=== PATIENT | male | born 1980 | race Hispanic/Latino ===

== ENCOUNTER 2018-04-15 00:59 | Emergency (ER) | payer SELFPAY ==
[2018-04-15 02:00] LABS: Absolute Lymphocytes (CBC) 1.3 K/uL (0.7-4.9); Absolute Monocytes 0.7 K/uL (0.1-1.3); Absolute Neutrophil 8.1 K/uL (1.8-8.0); Basophils % 0.3 % (0-1.3); Eosinophils % 0.2 % (0-4.4); Hematocrit 50.8 % (39.6-49.0); Lymphocytes % 12.8 % (15.3-44.8); MPV 9.9 fL (7.6-11.3); Monocytes % 6.5 % (3.3-12.3); RBC Red Blood Cell Count 5.86 M/uL (4.33-5.43)
[2018-04-15 02:04] LABS: Protime INR 1.03
[2018-04-15 02:30] LABS: ALT/SGPT 35 U/L (12-78); AST/SGOT 22 U/L (15-37); Albumin 4.9 g/dL (3.4-5.0); Alkaline Phosphatase 97 U/L (45-117); BUN Blood Urea Nitrogen 8 mg/dL (7-18); Bicarbonate 26 mmol/L (21-32); Bilirubin Direct 0.2 mg/dL (0-0.2); Bilirubin Total 1.1 mg/dL (0.2-1.0); Glucose Level 287 mg/dL (74-106); Potassium 3.5 mmol/L (3.5-5.1); Protein, Total 9.2 g/dL (6.4-8.2); Sodium Level 138 mmol/L (136-145)
[2018-04-15 02:59] LABS: Barbiturates NEGATIVE (NEGATIVE); Cocaine NEGATIVE (NEGATIVE); METHAMPHETAM NEGATIVE (NEGATIVE); Methadone NEGATIVE (NEGATIVE); Opiates NEGATIVE (NEGATIVE); Phencyclidine NEGATIVE (NEGATIVE); THC Cannibis NEGATIVE (NEGATIVE)
[2018-04-15 03:10] LABS: Urine Blood TRACE (NEG); Urine Glucose 2+ (NEG); Urine Protein 1+ (NEG); Urine Specific Gravity 1.015 (1.005-1.030); Urine pH 5.5 (5.0-7.0)
[2018-04-15 03:54] LABS: Benzodiazepines NEGATIVE (NEGATIVE)
[2018-04-15] MEDS ORDERED: METFORMIN HCL 500 MG TAB ONE (06:39)
--- NOTE | 2018-04-15 06:45 | EKG ---
Test Date: 2018-04-15 Test Time: 01:31:21 [employer]: AER MEASUREMENT RESULTS: Intervals: Rate: 109 ND: 132 QRSD: 92 QT: 354 QTc: 476 [place]: P: 48 ND: 132 QRS: -74 T: 32 INTERPRETIVE STATEMENTS: Sinus tachycardia Left axis deviation Pulmonary disease pattern Abnormal ECG No previous ECG available for comparison Electronically Signed On 04-15-18 06:44:48 [employer] by Kwan Lopez
[2018-04-16] MEDS ORDERED: METFORMIN HCL 500 MG TAB ONE ×3 (07:08→18:14)
--- NOTE | 2018-04-17 01:32 | ER ---
Nurse's Notes [facility] Name: Robby Augustin Jr Age: 37 yrs Sex: Male : 1980 Arrival Date: 04/15/2018 Time: 01:02 Bed 14 Private MD: Diagnosis: Suicidal ideations;Major depressive disorder, recurrent Presentation: 04/15 01:00 Presenting complaint: EMS states: that they were called by police who state that pt was fc trying to kill himself by shooting himself in the head. But upon being detained pt started to have abd pain and leg cramps. Transition of care: patient was not received from another setting of care. Onset of symptoms was 2015. Risk Assessment: Do you want to hurt yourself or someone else? Patient reports desire/thoughts of hurting themselves or someone else. Provider notified. Initial Sepsis Screen: Does the patient meet any 2 criteria? HR > 90 bpm. Yes Does the patient have a suspected source of infection? No. Patient's initial sepsis screen is negative. Care prior to arrival: Glucose check: 310. 01:00 Method Of Arrival: EMS: [facility] 01:00 Acuity: ROLY 2 fc Historical: - Allergies: 01:30 No Known Allergies; fc - Home Meds: 01:30 gemfibrozil 600 mg Oral tab 1 tab 2 times per day [Active]; metformin 500 mg Oral tab 1 fc tab 2 times per day [Active]; - PMHx: 01:30 Diabetes - NIDDM; High Cholesterol; Depression; TB; fc - PSHx: 01:30 Appendectomy; fc - Immunization history:: Last tetanus immunization: up to date Flu vaccine status is unknown. - Social history:: Smoking status: Patient/guardian denies using tobacco, Patient/guardian denies using alcohol, street drugs. - Ebola Screening: : Patient negative for fever greater than or equal to 101.5 degrees Fahrenheit, and additional compatible Ebola Virus Disease symptoms Patient denies exposure to infectious person Patient denies travel to an Ebola-affected area in the 21 days before illness onset. Screenin:00 Abuse screen: Denies threats or abuse. Nutritional screening: No deficits noted. fc Tuberculosis screening: prior treatment for TB in 2003. Fall Risk None identified. Assessment: 01:00 General: Appears in no apparent distress. comfortable, Behavior is calm, cooperative, rr5 quiet. Pain: Complains of pain in abdomen, right leg and left leg Pain does not radiate. Pain currently is 7 out of 10 on a pain scale. Quality of pain is described as aching, Pain began gradually, Is intermittent. 01:00 Neuro: Level of Consciousness is awake, alert, obeys commands, Oriented to person, rr5 place, time, situation, Appropriate for age. Cardiovascular: Capillary refill < 3 seconds Patient's skin is warm and dry. Respiratory: Airway is patent Respiratory effort is even, unlabored, Respiratory pattern is regular, symmetrical. GI: Abdomen is flat, Reports lower abdominal pain, upper abdominal pain. : No signs and/or symptoms were reported regarding the genitourinary system. EENT: No signs and/or symptoms were reported regarding the EENT system. Derm: Skin is intact, Skin temperature is warm. Musculoskeletal: Capillary refill < 3 seconds, Range of motion: intact in all extremities, Reports leg cramps. 02:00 Reassessment: Patient appears in no apparent distress at this time. Patient and/or rr5 family updated on plan of care and expected duration. Pain level reassessed. asleep on bed with sitter at bedside. 03:00 Reassessment: Patient appears in no apparent distress at this time. Patient and/or rr5 family updated on plan of care and expected duration. Pain level reassessed. no complaints made. 04:35 Reassessment: Patient appears in no apparent distress at this time. Patient and/or rr5 family updated on plan of care and expected duration. Pain level reassessed. awaiting for the mental deputy officer. cooperative, calm. 06:00 Reassessment: Patient appears in no apparent distress at this time. No changes from rr5 previously documented assessment. asleep comfortably on bed. waiting for mental health officer to come. 06:41 Reassessment: Patient appears in no apparent distress at this time. No changes from rr5 previously documented assessment. no complaints made. update from Charge nurse, coordinating now with other facilities, if they will not take the patient [facility] is on its way. Patient states feeling better. 07:00 General: Appears in no apparent distress. comfortable, Behavior is calm, cooperative, hj appropriate for age. Pain: Complains of pain in left leg and right leg and abdomen. Neuro: Level of Consciousness is awake, alert, obeys commands, Oriented to person, place, time, situation, Appropriate for age. Cardiovascular: Capillary refill < 3 seconds Patient's skin is warm and dry. GI: Abdomen is non-distended, Reports lower abdominal pain, upper abdominal pain. : No signs and/or symptoms were reported regarding the genitourinary system. EENT: No signs and/or symptoms were reported regarding the EENT system. Derm: No signs and/or symptoms reported regarding the dermatologic system. Musculoskeletal: No signs and/or symptoms reported regarding the musculoskeletal system. 07:45 Reassessment: Patient and/or family updated on plan of care and expected duration. Pain hj level reassessed. Patient is alert, oriented x 3, equal unlabored respirations, skin warm/dry/pink. [facility] in room;. 08:45 Reassessment: Patient and/or family updated on plan of care and expected duration. Pain hj level reassessed. Patient is alert, oriented x 3, equal unlabored respirations, skin warm/dry/pink. resting comfortably;. 09:45 Reassessment: Patient and/or family updated on plan of care and expected duration. Pain hj level reassessed. Patient is alert, oriented x 3, equal unlabored respirations, skin warm/dry/pink. resting comfotably;. 10:00 Reassessment: [facility] called to report they will be looking through pt chart. iw 12:00 Reassessment: Patient and/or family updated on plan of care and expected duration. Pain hj level reassessed. Patient is alert, oriented x 3, equal unlabored respirations, skin warm/dry/pink. 13:00 Reassessment: Patient and/or family updated on plan of care and expected duration. Pain hj level reassessed. Patient is alert, oriented x 3, equal unlabored respirations, skin warm/dry/pink. resting comfortably;. 14:00 Reassessment: Patient and/or family updated on plan of care and expected duration. Pain hj level reassessed. Patient is alert, oriented x 3, equal unlabored respirations, skin warm/dry/pink. 15:00 Reassessment: Patient and/or family updated on plan of care and expected duration. Pain hj level reassessed. Patient is alert, oriented x 3, equal unlabored respirations, skin warm/dry/pink. 16:00 Reassessment: Patient and/or family updated on plan of care and expected duration. Pain hj level reassessed. Patient is alert, oriented x 3, equal unlabored respirations, skin warm/dry/pink. 17:00 Reassessment: pt requested to update, told him we are waiting for a call from [facility], he stated, he wanted to go home and proceed with [place] scheduled around 10- 11 am; provider informed; pt is an in patient psych, only psych doc can D/C pt;. 17:38 Reassessment: Jenni called asking if family could visit; pt was asked and he skye gave permission to id to have visitors guido family members. 18:00 Reassessment: Patient and/or family updated on plan of care and expected duration. Pain hj level reassessed. Patient is alert, oriented x 3, equal unlabored respirations, skin warm/dry/pink. awaiting family member for a visit;. 19:05 General: Appears in no apparent distress. comfortable, Behavior is calm, cooperative, rr5 appropriate for age. Pain: Denies pain. Neuro: Level of Consciousness is awake, alert, obeys commands, Oriented to person, place, time, situation, Appropriate for age. Cardiovascular: Capillary refill < 3 seconds Patient's skin is warm and dry. Respiratory: Airway is patent Respiratory effort is even, unlabored, Respiratory pattern is regular, symmetrical. GI: Abdomen is flat, non-distended. : No signs and/or symptoms were reported regarding the genitourinary system. EENT: No signs and/or symptoms were reported regarding the EENT system. Derm: No signs and/or symptoms reported regarding the dermatologic system. Skin is intact, Skin temperature is warm. Musculoskeletal: Capillary refill < 3 seconds, Range of motion: intact in all extremities. 19:05 Reassessment: Patient appears in no apparent distress at this time. Patient and/or rr5 family updated on plan of care and expected duration. Pain level reassessed. awaiting for staff. 20:30 Reassessment: Patient appears in no apparent distress at this time. Patient is alert, rr5 oriented x 3, equal unlabored respirations, skin warm/dry/pink. chatting with his family member, eating dinner. no complaints made. 21:30 Reassessment: Patient appears in no apparent distress at this time. No changes from rr5 previously documented assessment. Patient is alert, oriented x 3, equal unlabored respirations, skin warm/dry/pink. 22:30 Reassessment: Patient appears in no apparent distress at this time. Patient is alert, rr5 oriented x 3, equal unlabored respirations, skin warm/dry/pink. watching TV comfortably. 23:30 Reassessment: Patient appears in no apparent distress at this time. No changes from rr5 previously documented assessment. 04/16 00:30 Reassessment: Patient appears in no apparent distress at this time. Patient is alert, rr5 oriented x 3, equal unlabored respirations, skin warm/dry/pink. no complaints made. 01:00 Reassessment: Patient appears in no apparent distress at this time. chatting with his rr5 visitors no complaints noted. 02:00 Reassessment: Patient appears in no apparent distress at this time. Patient is alert, rr5 oriented x 3, equal unlabored respirations, skin warm/dry/pink. 03:00 Reassessment: Patient appears in no apparent distress at this time. Patient and/or rr5 family updated on plan of care and expected duration. Pain level reassessed. awake watching TV on semi quintero's position Patient states feeling better. 04:00 Reassessment: Patient appears in no apparent distress at this time. Patient is alert, rr5 oriented x 3, equal unlabored respirations, skin warm/dry/pink. spoke to [facility] staff adrian informed for the information of the patient. to be send [facility] and [facility] assessment. fax number [phone]. 05:30 Reassessment: Patient appears in no apparent distress at this time. asleep on bed. rr5 06:30 Reassessment: ED provider informed patient has a due of metformin for his diabetes. rr5 with order to continue the medication. 06:52 Reassessment: Patient appears in no apparent distress at this time. Patient is alert, rr5 oriented x 3, equal unlabored respirations, skin warm/dry/pink. on side lying position asleep comfortably on bed. 07:25 Reassessment: Patient appears in no apparent distress at this time. Patient and/or ph family updated on plan of care and expected duration. Pain level reassessed. Pt awake, lying in bed quietly, awaiting breakfast, VSS, no complaints at this time. 08:30 Reassessment: Patient appears in no apparent distress at this time. Patient and/or ph family updated on plan of care and expected duration. Pain level reassessed. Patient is alert, oriented x 3, equal unlabored respirations, skin warm/dry/pink. Awaiting transfer to psychiatric facility. 09:15 Reassessment: Patient appears in no apparent distress at this time. Patient and/or ph family updated on plan of care and expected duration. Pain level reassessed. Patient is alert, oriented x 3, equal unlabored respirations, skin warm/dry/pink. Pt eating breakfast, tolerating well. 10:30 Reassessment: Patient appears in no apparent distress at this time. No changes from ph previously documented assessment. Patient and/or family updated on plan of care and expected duration. Pain level reassessed. Patient is alert, oriented x 3, equal unlabored respirations, skin warm/dry/pink. 11:27 Reassessment: called [facility] who reports they are waiting for beds to become ss available after their physicians round, and [facility] report that patient is 3rd on waiting list. Transfer pending bed availability. 11:30 Reassessment: [facility] intake nurse reports that she is not available at this time for ss update, but asks to call back within one hour. 11:30 Reassessment: Patient appears in no apparent distress at this time. Patient and/or ph family updated on plan of care and expected duration. Pain level reassessed. Patient is alert, oriented x 3, equal unlabored respirations, skin warm/dry/pink. 12:37 Reassessment: Patient appears in no apparent distress at this time. Patient and/or ph family updated on plan of care and expected duration. Pain level reassessed. Patient is alert, oriented x 3, equal unlabored respirations, skin warm/dry/pink. Pt sitting in bed talking w/ family member at bedside, awaiting acceptance at psych facility. 13:30 Reassessment: Patient appears in no apparent distress at this time. No changes from ph previously documented assessment. Patient and/or family updated on plan of care and expected duration. Pain level reassessed. Patient is alert, oriented x 3, equal unlabored respirations, skin warm/dry/pink. 14:30 Reassessment: Patient appears in no apparent distress at this time. No changes from ph previously documented assessment. Patient and/or family updated on plan of care and expected duration. Pain level reassessed. Patient is alert, oriented x 3, equal unlabored respirations, skin warm/dry/pink. 15:45 Reassessment: Patient appears in no apparent distress at this time. No changes from ph previously documented assessment. Patient and/or family updated on plan of care and expected duration. Pain level reassessed. Patient is alert, oriented x 3, equal unlabored respirations, skin warm/dry/pink. 17:00 Reassessment: Patient appears in no apparent distress at this time. No changes from ph previously documented assessment. Patient and/or family updated on plan of care and expected duration. Pain level reassessed. 18:07 Reassessment: Patient appears in no apparent distress at this time. Patient and/or ph family updated on plan of care and expected duration. Pain level reassessed. Pt appears to be sleeping, respirations even and unlabored, awaiting acceptance at psych facility. 19:00 Reassessment: Patient appears in no apparent distress at this time. Patient and/or jb4 family updated on plan of care and expected duration. Pain level reassessed. Patient is alert, oriented x 3, equal unlabored respirations, skin warm/dry/pink. 20:00 Reassessment: Patient appears in no apparent distress at this time. Patient and/or jb4 family updated on plan of care and expected duration. Pain level reassessed. Patient is alert, oriented x 3, equal unlabored respirations, skin warm/dry/pink. 20:50 Reassessment: Patient appears in no apparent distress at this time. Patient and/or jb4 family updated on plan of care and expected duration. Pain level reassessed. Patient is alert, oriented x 3, equal unlabored respirations, skin warm/dry/pink. Pt was talking with his significant other. general surgery physician assistant reports that pt began to hit himself in the face multiple times after she had left the room. PT is in the room sitting in bed. States " I did not sign up for any of this I just want to go home. I feel like I am locked up, and I just want to go home." Provider notified, no new orders at this time. 21:13 Reassessment: Deputy Best who states that pt need re-eval by [facility] due to fc warrant being close to expiration. 21:17 Reassessment: Deputy Mcmullen called to state that pt must have re-eval by [facility] but that in the mean time he will send Deputy Best to ER to speak with pt and Dr about transfer and senior product engineer signed warrant. 21:30 Reassessment: Deputy Best dropped off mental health commitment handbook and stated fc that he will be back in 2 or so hours to transfer pt to psych facility. Explained that no bed had been secured for him and he stated that he was going to take pt to [facility] ER. 22:00 Reassessment: Patient appears in no apparent distress at this time. Patient and/or jb4 family updated on plan of care and expected duration. Pain level reassessed. Patient is alert, oriented x 3, equal unlabored respirations, skin warm/dry/pink. Pt has guest at the bedside and is eating dinner with them. Appears to be much more calm. Denies needing wanting anything from hospital staff at this time. Patient states feeling better. Patient states symptoms have improved. 23:49 Reassessment: Patient appears in no apparent distress at this time. Patient and/or jb4 family updated on plan of care and expected duration. Pain level reassessed. Patient is alert, oriented x 3, equal unlabored respirations, skin warm/dry/pink. Guest are at the bedside. 04/17 01:00 Reassessment: Patient appears in no apparent distress at this time. No changes from jb4 previously documented assessment. Patient and/or family updated on plan of care and expected duration. Pain level reassessed. Patient is alert, oriented x 3, equal unlabored respirations, skin warm/dry/pink. 01:15 Reassessment: [place] Estephania here with Judge Carranza to fill out paper work for Mental Health Commitment Handbook. Pt will be taken to psych facility by . 01:32 Reassessment: Patient appears in no apparent distress at this time. Patient and/or jb4 family updated on plan of care and expected duration. Pain level reassessed. Patient is alert, oriented x 3, equal unlabored respirations, skin warm/dry/pink. Belongings returned to the pt. Pt gave his his 2 gold colored rings, gold necklace with a charm, and plain gold necklace along with his house keys and pocket knife and belt. Pt also gave his $400. When money was returned to pt all $700 was accounted for. was also given the pt's belt. Psych: 04/15 01:00 Subjective: Patient's mood is sad, hopeless, Delusions are denied, Hallucinations are fc denied Having thoughts of suicide. Plan for suicide is shoot himself in the head. Objective: Patient is cooperative, Speech is normal, Affect is appropriate. Interventions: Removed personal items and placed in bag. Patient placed in hospital gown. Searched person for dangerous items. Belonging list filled out. Suicide Risk Assessment: Sad Person Scale: Sex of patient: Male: Score 1 point. Age of patient: Score 0 point if patient falls outside of specified age parameters. Depression: Score 1 point if signs of depression are present. Previous Attempt: Score 1 point if patient has previously attempted suicide. Substance Abuse: Score 0 point if patient does not abuse alcohol or drugs. Rational Thinking: Score 1 point if patient is lacking rational thinking. Social Support: Score 1 point if social support is lacking and/or unavailable. Organized Plan: Score 1 point if patient had a plan in place. Relationship: Score 0 point if patient has a spouse or domestic partner. Chronic Sickness: Score 1 point if patient has illness, chronic, debilitating, or severe. TOTAL POINTS: If total points are 7-10, the proposed clinical action is to hospitalize or commit. Implement suicide precautions. Safety Checks: Personal items have been removed. Door is open. No visitors are present at this time. Pt denies substance abuse. 04/17 01:30 Commitment: Patient will be an involuntary commitment. Commitment papers completed. jb4 Vital Signs: 04/15 01:00 BP 149 / 106; Pulse 121; Resp 18; Temp 98.1(O); Pulse Ox 98% on R/A; Weight 83.91 kg fc (R); Height 5 ft. 11 in. (180.34 cm) (R); Pain 7/10; 05:02 BP 149 / 98; Pulse 99; Resp 16; Pulse Ox 98% on R/A; mt 09:00 BP 127 / 89; Pulse 97; Resp 18; Temp 97.6(O); Pulse Ox 97% on R/A; mh5 13:00 BP 126 / 86; Pulse 88; Resp 17; Temp 97.6(O); Pulse Ox 97% on R/A; mh5 17:06 BP 123 / 87; Pulse 84; Resp 18; Temp 97.8(O); Pulse Ox 97% on R/A; mh5 21:02 BP 126 / 81; Pulse 75; Resp 17; Temp 99.2; Pulse Ox 95% on R/A; ar5 04/16 00:58 BP 131 / 82; Pulse 79; Resp 18; Temp 97.9; Pulse Ox 97% on R/A; ar5 04:02 BP 128 / 61; Pulse 79; Resp 17; Temp 99.4; Pulse Ox 97% ; rr5 07:22 BP 119 / 80; Pulse 86; Resp 16; Temp 96.2(O); Pulse Ox 100% on R/A; dh3 12:18 BP 125 / 79; Pulse 85; Resp 18; Temp 97.4; Pulse Ox 97% ; je1 15:53 BP 120 / 79; Pulse 86; Resp 18; Temp 99.1; Pulse Ox 98% ; je1 20:57 BP 119 / 78; Pulse 100; Resp 16; Temp 96.8; Pulse Ox 96% ; bc4 04/17 01:05 BP 137 / 81; Pulse 89; Resp 17; Temp 98; Pulse Ox 98% ; [facility] 04/15 01:00 Body Mass Index 25.80 (83.91 kg, 180.34 cm) ED Course: 04/15 01:00 Safety Checks: Personal items have been removed. The door is open or patient has been rr5 placed in a hallway bed/chair. Sitter present at this time. 01:00 No apparent distress. rr5 01:00 No apparent distress. Appears to be sleeping. rr5 01:00 Arm band placed on Patient placed in an exam room, on a stretcher. fc 01:00 Patient has correct armband on for positive identification. Placed in gown. Bed in low fc position. Call light in reach. 01:02 Patient arrived in ED. al2 01:25 Triage completed. 01:45 Inserted saline lock: 20 gauge in right antecubital area, using aseptic technique. ar5 01:51 Yannick Cortes RN is Primary Nurse. rr5 02:00 No apparent distress. Resting quietly. rr5 02:00 Safety checks: Items removed: yes. Door open/sign placed on door: yes. Family/friend ar5 present: no. Sitter present: Yes. 02:02 Shawn Aldrich MD is Attending Physician. tw4 02:15 Safety checks: Items removed: yes. Door open/sign placed on door: yes. Family/friend ar5 present: no. Sitter present: Yes. 02:30 Safety checks: Items removed: yes. Door open/sign placed on door: yes. Family/friend ar5 present: no. Sitter present: Yes. 02:36 Urine Dipstick--Ancillary (enter results) Sent. rr5 02:45 Safety checks: Items removed: yes. Door open/sign placed on door: yes. Family/friend ar5 present: no. Sitter present: Yes. 03:00 No apparent distress. Resting quietly. rr5 03:00 Safety checks: Items removed: yes. Door open/sign placed on door: yes. Family/friend ar5 present: no. Sitter present: Yes. 03:15 Safety checks: Items removed: yes. Door open/sign placed on door: yes. Family/friend ar5 present: no. Sitter present: Yes. 03:30 Safety checks: Items removed: yes. Door open/sign placed on door: yes. Family/friend ar5 present: no. Sitter present: Yes. 03:45 Safety checks: Items removed: yes. Door open/sign placed on door: yes. Family/friend ar5 present: no. Sitter present: Yes. 04:00 Safety checks: Items removed: yes. Door open/sign placed on door: yes. Family/friend ar5 present: no. Sitter present: Yes. 04:15 Safety checks: Items removed: yes. Door open/sign placed on door: yes. Family/friend ar5 present: no. Sitter present: Yes. 04:30 Safety checks: Items removed: yes. Door open/sign placed on door: yes. Family/friend ar5 present: no. Sitter present: Yes. 04:45 Safety checks: Items removed: yes. Door open/sign placed on door: yes. Family/friend mt present: no. Sitter present: Yes. 05:00 Safety checks: Items removed: yes. Door open/sign placed on door: yes. Family/friend mt present: no. Sitter present: Yes. 05:15 Safety checks: Items removed: yes. Door open/sign placed on door: yes. Family/friend mt present: no. Sitter present: Yes. 05:30 Safety checks: Items removed: yes. Door open/sign placed on door: yes. Family/friend mt present: no. Sitter present: Yes. 05:45 Safety checks: Items removed: yes. Door open/sign placed on door: yes. Family/friend mt present: no. Sitter present: Yes. 06:00 Safety checks: Items removed: yes. Door open/sign placed on door: yes. Family/friend mt present: no. Sitter present: Yes. 06:15 Safety checks: Items removed: yes. Door open/sign placed on door: yes. Family/friend mt present: no. Sitter present: Yes. 06:30 Safety checks: Items removed: yes. Door open/sign placed on door: yes. Family/friend mt present: no. Sitter present: Yes. 06:45 Safety checks: Items removed: yes. Door open/sign placed on door: yes. Family/friend mh5 present: no. Sitter present: Yes. 07:00 Safety checks: Items removed: yes. Door open/sign placed on door: yes. Family/friend mh5 present: no. Sitter present: Yes. 07:15 Safety checks: Items removed: yes. Door open/sign placed on door: yes. Family/friend mh5 present: no. Sitter present: Yes. 07:30 Safety checks: Items removed: yes. Door open/sign placed on door: yes. Family/friend mh5 present: no. Sitter present: Yes. 07:45 Safety checks: Items removed: yes. Door open/sign placed on door: yes. Family/friend mh5 present: no. Other: GULF COAST IN WITH PATIENT Sitter present: Yes. 08:00 Safety checks: Items removed: yes. Door open/sign placed on door: yes. Family/friend mh5 present: no. Other: GULF COAST IN WITH PATIENT Sitter present: Yes. 08:15 Safety checks: Items removed: yes. Door open/sign placed on door: yes. Family/friend mh5 present: no. Sitter present: Yes. 08:30 Safety checks: Items removed: yes. Door open/sign placed on door: yes. Family/friend mh5 present: no. Sitter present: Yes. 08:45 Safety checks: Items removed: yes. Door open/sign placed on door: yes. Family/friend mh5 present: no. Sitter present: Yes. 08:59 Diet: Patient given a diabetic meal tray. mh5 09:00 Safety checks: Items removed: yes. Door open/sign placed on door: yes. Family/friend mh5 present: no. Sitter present: Yes. 09:15 Safety checks: Items removed: yes. Door open/sign placed on door: yes. Family/friend mh5 present: no. Sitter present: Yes. 09:30 Safety checks: Items removed: yes. Door open/sign placed on door: yes. Family/friend mh5 present: no. Sitter present: Yes. 09:45 Safety checks: Items removed: yes. Door open/sign placed on door: yes. Family/friend mh5 present: no. Sitter present: Yes. 10:00 Safety checks: Items removed: yes. Door open/sign placed on door: yes. Family/friend mh5 present: no. Sitter present: Yes. 10:15 Safety checks: Items removed: yes. Door open/sign placed on door: yes. Family/friend mh5 present: no. Sitter present: Yes. 10:30 Safety checks: Items removed: yes. Door open/sign placed on door: yes. Family/friend mh5 present: no. Sitter present: Yes. 10:45 Safety checks: Items removed: yes. Door open/sign placed on door: yes. Family/friend mh5 present: no. Sitter present: Yes. 11:00 Safety checks: Items removed: yes. Door open/sign placed on door: yes. Family/friend mh5 present: no. Sitter present: Yes. 11:15 Safety checks: Items removed: yes. Door open/sign placed on door: yes. Family/friend mh5 present: no. Sitter present: Yes. 11:30 Safety checks: Items removed: yes. Door open/sign placed on door: yes. Family/friend mh5 present: no. Sitter present: Yes. 11:45 Safety checks: Items removed: yes. Door open/sign placed on door: yes. Family/friend mh5 present: no. Sitter present: Yes. 12:00 Safety checks: Items removed: yes. Door open/sign placed on door: yes. Family/friend mh5 present: no. Sitter present: Yes. 12:15 Safety checks: Items removed: yes. Door open/sign placed on door: yes. Family/friend mh5 present: no. Sitter present: Yes. 12:30 Safety checks: Items removed: yes. Door open/sign placed on door: yes. Family/friend mh5 present: no. Sitter present: Yes. 12:45 Safety checks: Items removed: yes. Door open/sign placed on door: yes. Family/friend mh5 present: no. Sitter present: Yes. 13:00 Safety checks: Items removed: yes. Door open/sign placed on door: yes. Family/friend mh5 present: no. Sitter present: Yes. 13:15 Safety checks: Items removed: yes. Door open/sign placed on door: yes. Family/friend mh5 present: no. Sitter present: Yes. 13:26 Diet: Patient given a diabetic meal tray. mh5 13:30 Safety checks: Items removed: yes. Door open/sign placed on door: yes. Family/friend mh5 present: no. Sitter present: Yes. 13:45 Safety checks: Items removed: yes. Door open/sign placed on door: yes. Family/friend mh5 present: no. Sitter present: Yes. 14:00 Safety checks: Items removed: yes. Door open/sign placed on door: yes. Family/friend mh5 present: no. Sitter present: Yes. 14:29 Safety checks: Items removed: yes. Door open/sign placed on door: yes. Family/friend tm3 present: no. Sitter present: Yes. 15:00 Safety checks: Items removed: yes. Door open/sign placed on door: yes. Family/friend mh5 present: no. Sitter present: Yes. 15:15 Safety checks: Items removed: yes. Door open/sign placed on door: yes. Family/friend mh5 present: no. Sitter present: Yes. 15:30 Safety checks: Items removed: yes. Door open/sign placed on door: yes. Family/friend mh5 present: no. Sitter present: Yes. 15:45 Safety checks: Items removed: yes. Door open/sign placed on door: yes. Family/friend mh5 present: no. Sitter present: Yes. 16:00 Safety checks: Items removed: yes. Door open/sign placed on door: yes. Family/friend mh5 present: no. Sitter present: Yes. 16:14 Safety checks: Items removed: yes. Door open/sign placed on door: yes. Family/friend tm3 present: no. Sitter present: Yes. 16:28 Safety checks: Items removed: yes. Door open/sign placed on door: yes. Family/friend tm3 present: no. Sitter present: Yes. 16:45 Safety checks: Items removed: yes. Door open/sign placed on door: yes. Family/friend mh5 present: no. Sitter present: Yes. 16:50 Faxed clinical's to [facility], [facility], [facility], [facility], [facility], [facility], [facility], [facility], [facility], [facility]. 17:00 Safety checks: Items removed: yes. Door open/sign placed on door: yes. Family/friend mh5 present: no. Sitter present: Yes. 17:15 Safety checks: Items removed: yes. Door open/sign placed on door: yes. Family/friend mh5 present: no. Sitter present: Yes. 17:16 Diet: Patient given a diabetic meal tray. mh5 17:30 Safety checks: Items removed: yes. Door open/sign placed on door: yes. Family/friend mh5 present: no. Sitter present: Yes. 17:45 Safety checks: Items removed: yes. Door open/sign placed on door: yes. Family/friend mh5 present: no. Sitter present: Yes. 18:00 Safety checks: Items removed: yes. Door open/sign placed on door: yes. Family/friend mh5 present: no. Sitter present: Yes. 18:15 Safety checks: Items removed: yes. Door open/sign placed on door: yes. Family/friend mh5 present: no. Sitter present: Yes. 18:30 Safety checks: Items removed: yes. Door open/sign placed on door: yes. Family/friend mh5 present: no. Sitter present: Yes. 18:45 Safety checks: Items removed: yes. Door open/sign placed on door: yes. Family/friend mh5 present: no. Sitter present: Yes. 19:00 No apparent distress. Resting quietly. Safety Checks: Personal items have been removed. rr5 The door is open or patient has been placed in a hallway bed/chair. Sitter present at this time. 19:00 Safety checks: Items removed: yes. Door open/sign placed on door: yes. Family/friend mh5 present: no. Sitter present: Yes. 19:07 Safety checks: Family/friend present: yes. Family/friends encouraged to stay with ar5 patient. 19:15 Safety checks: Items removed: yes. Door open/sign placed on door: yes. Family/friend ar5 present: yes. Sitter present: Yes. 19:30 Safety checks: Items removed: yes. Door open/sign placed on door: yes. Family/friend ar5 present: yes. Sitter present: Yes. 19:45 Safety checks: Items removed: yes. Door open/sign placed on door: yes. Family/friend ar5 present: yes. Sitter present: Yes. 20:00 Safety checks: Items removed: yes. Door open/sign placed on door: yes. Family/friend ar5 present: yes. Sitter present: Yes. 20:15 Safety checks: Items removed: yes. Door open/sign placed on door: yes. Family/friend ar5 present: yes. Sitter present: Yes. 20:30 Safety checks: Items removed: yes. Door open/sign placed on door: yes. Family/friend ar5 present: yes. Sitter present: Yes. 20:45 Safety checks: Items removed: yes. Door open/sign placed on door: yes. Family/friend ar5 present: yes. Sitter present: Yes. 21:00 Safety checks: Items removed: yes. Door open/sign placed on door: yes. Family/friend ar5 present: yes. Sitter present: Yes. 21:07 Family has left. ar5 21:15 Safety checks: Items removed: yes. Door open/sign placed on door: yes. Family/friend ar5 present: no. Sitter present: Yes. 21:20 Oral care given. Given toothbrush and toothpaste. Took it back after use. ar5 21:30 Safety checks: Items removed: yes. Door open/sign placed on door: yes. Family/friend ar5 present: yes. Sitter present: Yes. 21:45 Safety checks: Items removed: yes. Door open/sign placed on door: yes. Family/friend ar5 present: no. Sitter present: Yes. 22:00 Safety checks: Items removed: yes. Door open/sign placed on door: yes. Family/friend ar5 present: no. Sitter present: Yes. 22:15 Safety checks: Items removed: yes. Door open/sign placed on door: yes. Family/friend ar5 present: no. Sitter present: Yes. 22:30 Safety checks: Items removed: yes. Door open/sign placed on door: yes. Family/friend ar5 present: no. Sitter present: Yes. 22:45 Safety checks: Items removed: yes. Door open/sign placed on door: yes. Family/friend ar5 present: no. Sitter present: Yes. 23:00 Safety checks: Items removed: yes. Door open/sign placed on door: yes. Family/friend ar5 present: no. Sitter present: Yes. 23:15 Safety checks: Items removed: yes. Door open/sign placed on door: yes. Family/friend ar5 present: no. Sitter present: Yes. 23:30 Safety checks: Items removed: yes. Door open/sign placed on door: yes. Family/friend ar5 present: no. Sitter present: Yes. 23:45 Safety checks: Items removed: yes. Door open/sign placed on door: yes. Family/friend ar5 present: no. Sitter present: Yes. 04/16 00:00 Safety checks: Items removed: yes. Door open/sign placed on door: yes. Family/friend ar5 present: no. Sitter present: Yes. 00:15 Safety checks: Items removed: yes. Door open/sign placed on door: yes. Family/friend ar5 present: yes. Sitter present: Yes. 00:30 Safety checks: Items removed: yes. Door open/sign placed on door: yes. Family/friend ar5 present: yes. Sitter present: Yes. 00:45 Safety checks: Items removed: yes. Door open/sign placed on door: yes. Family/friend ar5 present: yes. Sitter present: Yes. 01:00 Safety checks: Items removed: yes. Door open/sign placed on door: yes. Family/friend ar5 present: yes. Sitter present: Yes. 01:15 Safety checks: Items removed: yes. Door open/sign placed on door: yes. Family/friend ar5 present: yes. Sitter present: Yes. 01:30 Safety checks: Items removed: yes. Door open/sign placed on door: yes. Family/friend ar5 present: no. Sitter present: Yes. 01:45 Safety checks: Items removed: yes. Door open/sign placed on door: yes. Family/friend ar5 present: no. Sitter present: Yes. 02:00 Safety checks: Items removed: yes. Door open/sign placed on door: yes. Family/friend ar5 present: no. Sitter present: Yes. 02:15 Safety checks: Items removed: yes. Door open/sign placed on door: yes. Family/friend ar5 present: no. Sitter present: Yes. 02:30 Safety checks: Items removed: yes. Door open/sign placed on door: yes. Family/friend ar5 present: no. Sitter present: Yes. 02:45 Safety checks: Items removed: yes. Door open/sign placed on door: yes. Family/friend ar5 present: no. Sitter present: Yes. 02:57 FAXED TO [facility], [facility], [facility] ON 04/16/18 . 03:00 Safety checks: Items removed: yes. Door open/sign placed on door: yes. Family/friend ar5 present: no. Sitter present: Yes. 03:15 Safety checks: Items removed: yes. Door open/sign placed on door: yes. Family/friend ar5 present: no. Sitter present: Yes. 03:30 Safety checks: Items removed: yes. Door open/sign placed on door: yes. Family/friend ar5 present: no. Sitter present: Yes. 03:45 Safety checks: Items removed: yes. Door open/sign placed on door: yes. Family/friend ar5 present: no. Sitter present: Yes. 04:00 Safety checks: Items removed: yes. Door open/sign placed on door: yes. Family/friend ar5 present: no. Sitter present: Yes. 04:15 Safety checks: Items removed: yes. Door open/sign placed on door: yes. Family/friend ar5 present: no. Sitter present: Yes. 04:30 Safety checks: Items removed: yes. Door open/sign placed on door: yes. Family/friend ar5 present: no. Sitter present: Yes. 04:31 No provider procedures requiring assistance completed. IV discontinued, intact, rr5 bleeding controlled, No redness/swelling at site. Pressure dressing applied. 04:45 Safety checks: Items removed: yes. Door open/sign placed on door: yes. Family/friend ar5 present: no. Sitter present: Yes. 05:00 Safety checks: Items removed: yes. Door open/sign placed on door: yes. Family/friend ar5 present: no. Sitter present: Yes. 05:15 Safety checks: Items removed: yes. Door open/sign placed on door: yes. Family/friend ar5 present: no. Sitter present: Yes. 05:30 Safety checks: Items removed: yes. Door open/sign placed on door: yes. Family/friend ar5 present: no. Sitter present: Yes. 05:45 Safety checks: Items removed: yes. Door open/sign placed on door: yes. Family/friend ar5 present: no. Sitter present: Yes. 06:00 Safety checks: Items removed: yes. Door open/sign placed on door: yes. Family/friend ar5 present: no. Sitter present: Yes. 06:15 Safety checks: Items removed: yes. Door open/sign placed on door: yes. Family/friend ar5 present: no. Sitter present: Yes. 06:30 Safety checks: Items removed: yes. Door open/sign placed on door: yes. Family/friend ar5 present: no. Sitter present: Yes. 07:00 Safety checks: Items removed: yes. Door open/sign placed on door: yes. Family/friend dh3 present: no. Sitter present: Yes. 07:15 Safety checks: Items removed: yes. Door open/sign placed on door: yes. Family/friend dh3 present: no. Sitter present: Yes. 07:30 Safety checks: Items removed: yes. Door open/sign placed on door: yes. Family/friend dh3 present: no. Sitter present: Yes. 07:45 Safety checks: Items removed: yes. Door open/sign placed on door: yes. Family/friend dh3 present: no. Sitter present: Yes. 08:00 Safety checks: Items removed: yes. Door open/sign placed on door: yes. Family/friend dh3 present: no. Sitter present: Yes. 08:15 Safety checks: Items removed: yes. Door open/sign placed on door: yes. Family/friend dh3 present: no. Sitter present: Yes. 08:30 Safety checks: Items removed: yes. Door open/sign placed on door: yes. Family/friend dh3 present: no. Sitter present: Yes. 08:45 Safety checks: Items removed: yes. Door open/sign placed on door: yes. Family/friend dh3 present: no. Sitter present: Yes. 09:00 Safety checks: Items removed: yes. Door open/sign placed on door: yes. Family/friend dh3 present: no. Sitter present: Yes. 09:15 Safety checks: Items removed: yes. Door open/sign placed on door: yes. Family/friend dh3 present: no. Sitter present: Yes. 09:30 Safety checks: Items removed: yes. Door open/sign placed on door: yes. Family/friend dh3 present: no. Sitter present: Yes. 09:45 Safety checks: Items removed: yes. Door open/sign placed on door: yes. Family/friend dh3 present: no. Sitter present: Yes. 10:00 Safety checks: Items removed: yes. Door open/sign placed on door: yes. Family/friend dh3 present: no. Sitter present: Yes. 10:15 Safety checks: Items removed: yes. Door open/sign placed on door: yes. Family/friend je1 present: no. Sitter present: Yes. 10:30 Safety checks: Items removed: yes. Door open/sign placed on door: yes. Family/friend je1 present: no. Sitter present: Yes. 10:45 Safety checks: Items removed: yes. Door open/sign placed on door: yes. Family/friend je1 present: no. Sitter present: Yes. 11:00 Safety checks: Items removed: yes. Door open/sign placed on door: yes. Family/friend je1 present: no. Sitter present: Yes. 11:15 Safety checks: Items removed: yes. Door open/sign placed on door: yes. Family/friend je1 present: no. Sitter present: Yes. 11:30 Safety checks: Items removed: yes. Door open/sign placed on door: yes. Family/friend je1 present: no. Sitter present: Yes. 11:45 Safety checks: Items removed: yes. Door open/sign placed on door: yes. Family/friend je1 present: no. Sitter present: Yes. 12:00 Safety checks: Items removed: yes. Door open/sign placed on door: yes. Family/friend je1 present: yes. Sitter present: Yes. 12:15 Safety checks: Items removed: yes. Door open/sign placed on door: yes. Family/friend je1 present: yes. Sitter present: Yes. 12:30 Safety checks: Items removed: yes. Door open/sign placed on door: yes. Family/friend je1 present: yes. Family/friends encouraged to stay with patient. Sitter present: Yes. 12:45 Safety checks: Items removed: yes. Door open/sign placed on door: yes. Family/friend je1 present: yes. Family/friends encouraged to stay with patient. Sitter present: Yes. 13:00 Safety checks: Items removed: yes. Door open/sign placed on door: yes. Family/friend je1 present: yes. Family/friends encouraged to stay with patient. Sitter present: Yes. 13:15 Safety checks: Items removed: yes. Door open/sign placed on door: yes. Family/friend je1 present: yes. Family/friends encouraged to stay with patient. Sitter present: Yes. 13:30 Safety checks: Items removed: yes. Door open/sign placed on door: yes. Family/friend je1 present: yes. Family/friends encouraged to stay with patient. Sitter present: Yes. 13:45 Safety checks: Items removed: yes. Door open/sign placed on door: yes. Family/friend je1 present: yes. Family/friends encouraged to stay with patient. Sitter present: Yes. 14:00 Safety checks: Items removed: yes. Door open/sign placed on door: yes. Family/friend je1 present: no. Sitter present: Yes. 14:15 Safety checks: Items removed: yes. Door open/sign placed on door: yes. Family/friend je1 present: no. Sitter present: Yes. 14:30 Safety checks: Items removed: yes. Door open/sign placed on door: yes. Family/friend je1 present: no. Sitter present: Yes. 14:45 Safety checks: Items removed: yes. Door open/sign placed on door: yes. Family/friend je1 present: no. Sitter present: Yes. 15:00 Safety checks: Items removed: yes. Door open/sign placed on door: yes. Family/friend je1 present: no. Sitter present: Yes. 15:15 Safety checks: Items removed: yes. Door open/sign placed on door: yes. Family/friend je1 present: no. Sitter present: Yes. 15:30 Safety checks: Items removed: yes. Door open/sign placed on door: yes. Family/friend je1 present: no. Sitter present: Yes. 15:45 Safety checks: Items removed: yes. Door open/sign placed on door: yes. Family/friend je1 present: no. Sitter present: Yes. 16:00 Safety checks: Items removed: yes. Door open/sign placed on door: yes. Family/friend je1 present: no. Sitter present: Yes. 16:15 Safety checks: Items removed: yes. Door open/sign placed on door: yes. Family/friend je1 present: no. Sitter present: Yes. 16:30 Safety checks: Items removed: yes. Door open/sign placed on door: yes. Family/friend je1 present: no. Sitter present: Yes. 16:45 Safety checks: Items removed: yes. Door open/sign placed on door: yes. Family/friend je1 present: no. Sitter present: Yes. 17:00 Safety checks: Items removed: yes. Door open/sign placed on door: yes. Family/friend je1 present: no. Sitter present: Yes. 17:15 Safety checks: Items removed: yes. Door open/sign placed on door: yes. Family/friend je1 present: no. Sitter present: Yes. 17:30 Safety checks: Items removed: yes. Door open/sign placed on door: yes. Family/friend je1 present: no. Sitter present: Yes. 17:45 Safety checks: Items removed: yes. Door open/sign placed on door: yes. Family/friend je1 present: no. Sitter present: Yes. 18:00 Safety checks: Items removed: yes. Door open/sign placed on door: yes. Family/friend je1 present: no. Sitter present: Yes. 18:15 Safety checks: Items removed: yes. Door open/sign placed on door: yes. Family/friend je1 present: no. Sitter present: Yes. 18:30 Safety checks: Sitter present: Yes. Safety checks: Items removed: yes. Door open/sign je1 placed on door: yes. Family/friend present: no. Sitter present: Yes. 18:45 Safety checks: Items removed: yes. Door open/sign placed on door: yes. Family/friend je1 present: no. Sitter present: Yes. 19:00 Safety checks: Items removed: yes. Door open/sign placed on door: yes. Family/friend je1 present: no. Sitter present: Yes. 19:15 Safety checks: Items removed: yes. Door open/sign placed on door: yes. Family/friend oe present: no. Sitter present: Yes. 19:30 Safety checks: Items removed: yes. Door open/sign placed on door: yes. Family/friend oe present: no. Sitter present: Yes. 19:45 Safety checks: Items removed: yes. Door open/sign placed on door: yes. Family/friend oe present: no. Sitter present: Yes. 20:00 Safety checks: Items removed: yes. Door open/sign placed on door: yes. Family/friend oe present: no. Sitter present: Yes. 20:15 Safety checks: Items removed: yes. Door open/sign placed on door: yes. Family/friend oe present: yes. no. Sitter present: Yes. 20:30 Safety checks: Items removed: yes. Door open/sign placed on door: yes. Family/friend oe present: no. Sitter present: Yes. 20:45 Safety checks: Items removed: yes. Door open/sign placed on door: yes. Family/friend oe present: yes. Sitter present: Yes. 20:58 Safety checks: Items removed: yes. Door open/sign placed on door: yes. Family/friend bc4 present: yes. Sitter present: Yes. 21:10 Safety checks: Items removed: yes. Door open/sign placed on door: yes. Family/friend bc4 present: yes. Sitter present: Yes. 21:29 Safety checks: Items removed: yes. Door open/sign placed on door: yes. Family/friend bc4 present: yes. Sitter present: Yes. 21:55 Safety checks: Items removed: yes. Door open/sign placed on door: Patient placed in bc4 hallway bed. yes. Family/friend present: yes. Sitter present: Yes. 22:17 Safety checks: Items removed: yes. Door open/sign placed on door: yes. Family/friend bc4 present: yes. Sitter present: Yes. 22:57 Safety checks: Items removed: yes. Door open/sign placed on door: yes. Family/friend bc4 present: yes. Sitter present: Yes. 23:27 Safety checks: Items removed: yes. Door open/sign placed on door: yes. Family/friend bc4 present: yes. Sitter present: Yes. 04/17 00:15 Safety checks: Items removed: yes. Door open/sign placed on door: yes. Family/friend oe present: yes. Sitter present: Yes. 00:30 Safety checks: Items removed: yes. Door open/sign placed on door: yes. Family/friend oe present: yes. Sitter present: Yes. 01:06 Safety checks: Items removed: yes. Door open/sign placed on door: yes. Family/friend bc4 present: yes. Sitter present: No. 01:30 Attending Physician role handed off by Shawn Aldrich MD cha 01:30 Royce Smith MD is Attending Physician. lashonda Administered Medications: 04/15 06:40 Drug: metFORMIN 500 mg Route: PO; rr5 07:30 Follow up: Response: No adverse reaction rr5 01/16 08:40 Drug: metFORMIN 500 mg Route: PO; ph 18:06 Follow up: Response: No adverse reaction ph 19:02 Drug: metFORMIN 500 mg Route: PO; ph Point of Care Testing: Blood Glucose: 04/15 02:47 Blood Glucose: 250 mg/dL; ea 04/16 04:15 Blood Glucose: 324 mg/dL; rr5 18:12 Blood Glucose: 245 mg/dL; ph Ranges: Intake: 05:36 04/15/18 2130 voided 1x 2300H voided 1x, 04/16/18 0215 1x, 0530H voided 1x rr5 Outcome: 04/17 01:31 ER care complete, transfer ordered by MD. gallego 01:32 Discharged to Mental Health deputy with belongings. [email or web address] 01:32 Condition: stable 01:32 Discharge instructions given to patient, family, Instructed on the need for transfer, Demonstrated understanding of instructions. 01:40 Patient left the ED. aa1 Signatures: Gabriel Oreilly tm3 Shakila Khan RN RN aa1 Royce Smith MD MD cha Chretien, Felicia, RN Aniyah Quiñonez, SHAKEEL BECKFORD Kenisha Lopes ms, Shelby, RN SHAKEEL ss Annalee Hood RN Dudley Nj ph, RN Santiago Escobedo RN RN 4 Rashaun Martines Maria Nilsa Conklin mt, Joi 3 Sherri Stovall, RN Kenia Wiseman ea, Terrence, MD MD [facility] Chinyere Osorio [facility] Yannick Cortes, RN RN rr5 Leticia Rosas gm, Autumn ar5 Bentley English1 Corrections: (The following items were deleted from the chart) 04/15 02:49 02:47 Safety checks: Items removed: yes. Door open/sign placed on door: yes. ar5 Family/friend present: no. Sitter present: Yes. ar5 20:05 20:04 Safety checks: Items removed: yes. Door open/sign placed on door: yes. ar5 Family/friend present: yes. Sitter present: Yes. ar5 04/16 01:34 01:33 Safety checks: Items removed: yes. Door open/sign placed on door: yes. ar5 Family/friend present: yes. Sitter present: Yes. ar5 05:41 05:40 Safety checks: Items removed: yes. Door open/sign placed on door: yes. ar5 Family/friend present: no. Sitter present: Yes. ar5 07:18 04:31 IV discontinued, intact, bleeding controlled, No redness/swelling at site. rr5 Pressure dressing applied, rr5 04/17 01:13 01:05 BP 137 / 81; Pulse 89bpm; Resp 17bpm; Pulse Ox 98%; Temp 95.9F; bc4 bc4 01:40 01:32 Reassessment: Patient appears in no apparent distress at this time. Patient jb4 and/or family updated on plan of care and expected duration. Pain level reassessed. Patient is alert, oriented x 3, equal unlabored respirations, skin warm/dry/pink. Belongings returned to the pt. Pt gave his his 2 gold colored rings, gold necklace with a charm, and plain gold necklace along with his house keys and pocket knife and belt. Pt also gave his $400. When money was returned to pt all $700 was accounted for. jb4
--- NOTE | 2018-04-17 01:32 | EDPHYS ---
Physician Documentation [facility] Name: Robby Augustin Jr Age: 37 yrs Sex: Male : 1980 Arrival Date: 04/15/2018 Time: 01:02 Bed 14 Private MD: ED Physician Royce Smith HPI: 04/15 06:16 This 37 yrs old Male presents to ER via EMS with complaints of Suicidal tw4 Ideation. 06:16 This 37 yrs old Male presents to ER via EMS with complaints of Suicidal tw4 Ideation STUCK A GUN IN HIS MOUTH. 06:16 The patient presents to the emergency department with suicide ideation. Onset: The tw4 symptoms/episode began/occurred today. Past psychiatric history: Prior diagnosis: depression. Associated signs and symptoms: The patient has no apparent associated signs or symptoms. It is unknown whether or not the patient has had similar symptoms in the past. Historical: - Allergies: 01:30 No Known Allergies; fc - Home Meds: 01:30 gemfibrozil 600 mg Oral tab 1 tab 2 times per day [Active]; metformin 500 mg Oral tab 1 fc tab 2 times per day [Active]; - PMHx: 01:30 Diabetes - NIDDM; High Cholesterol; Depression; TB; fc - PSHx: 01:30 Appendectomy; fc - Immunization history:: Last tetanus immunization: up to date Flu vaccine status is unknown. - Social history:: Smoking status: Patient/guardian denies using tobacco, Patient/guardian denies using alcohol, street drugs. - Ebola Screening: : Patient negative for fever greater than or equal to 101.5 degrees Fahrenheit, and additional compatible Ebola Virus Disease symptoms Patient denies exposure to infectious person Patient denies travel to an Ebola-affected area in the 21 days before illness onset. ROS: 06:16 Constitutional: Negative for fever, chills, and weight loss, Cardiovascular: Negative tw4 for chest pain, palpitations, and edema, Respiratory: Negative for shortness of breath, cough, wheezing, and pleuritic chest pain, Abdomen/GI: Negative for abdominal pain, nausea, vomiting, diarrhea, and constipation, Back: Negative for injury and pain, MS/Extremity: Negative for injury and deformity. 06:16 Neuro: Negative for headache, weakness, numbness, tingling, and seizure. 06:16 Psych: Positive for depression, suicide gesture, suicidal ideation, Negative for auditory hallucinations, visual hallucinations, homicidal ideation, insomnia. Exam: 06:16 Constitutional: This is a well developed, well nourished patient who is awake, alert, tw4 and in no acute distress. Head/Face: Normocephalic, atraumatic. Chest/axilla: Normal chest wall appearance and motion. Nontender with no deformity. No lesions are appreciated. Cardiovascular: Regular rate and rhythm with a normal S1 and S2. No gallops, murmurs, or rubs. Normal PMI, no JVD. No pulse deficits. Respiratory: Lungs have equal breath sounds bilaterally, clear to auscultation and percussion. No rales, rhonchi or wheezes noted. No increased work of breathing, no retractions or nasal flaring. Abdomen/GI: Soft, non-tender, with normal bowel sounds. No distension or tympany. No guarding or rebound. No evidence of tenderness throughout. Back: No spinal tenderness. No costovertebral tenderness. Full range of motion. MS/ Extremity: Pulses equal, no cyanosis. Neurovascular intact. Full, normal range of motion. Neuro: Awake and alert, GCS 15, oriented to person, place, time, and situation. Cranial nerves II-XII grossly intact. Motor strength 5/5 in all extremities. Sensory grossly intact. Cerebellar exam normal. Normal gait. 06:16 Psych: Behavior/mood is cooperative, suicidal, depressed, Affect is flat, Oriented to person, place, time, Patient having thoughts of suicide. Plan for suicide is SHOT SELF WITH GUN Judgement / Insight is impaired. Vital Signs: 01:00 BP 149 / 106; Pulse 121; Resp 18; Temp 98.1(O); Pulse Ox 98% on R/A; Weight 83.91 kg fc (R); Height 5 ft. 11 in. (180.34 cm) (R); Pain 7/10; 05:02 BP 149 / 98; Pulse 99; Resp 16; Pulse Ox 98% on R/A; mt 09:00 BP 127 / 89; Pulse 97; Resp 18; Temp 97.6(O); Pulse Ox 97% on R/A; mh5 13:00 BP 126 / 86; Pulse 88; Resp 17; Temp 97.6(O); Pulse Ox 97% on R/A; mh5 17:06 BP 123 / 87; Pulse 84; Resp 18; Temp 97.8(O); Pulse Ox 97% on R/A; mh5 21:02 BP 126 / 81; Pulse 75; Resp 17; Temp 99.2; Pulse Ox 95% on R/A; ar5 04/16 00:58 BP 131 / 82; Pulse 79; Resp 18; Temp 97.9; Pulse Ox 97% on R/A; ar5 04:02 BP 128 / 61; Pulse 79; Resp 17; Temp 99.4; Pulse Ox 97% ; rr5 07:22 BP 119 / 80; Pulse 86; Resp 16; Temp 96.2(O); Pulse Ox 100% on R/A; dh3 12:18 BP 125 / 79; Pulse 85; Resp 18; Temp 97.4; Pulse Ox 97% ; je1 15:53 BP 120 / 79; Pulse 86; Resp 18; Temp 99.1; Pulse Ox 98% ; je1 20:57 BP 119 / 78; Pulse 100; Resp 16; Temp 96.8; Pulse Ox 96% ; bc4 04/17 01:05 BP 137 / 81; Pulse 89; Resp 17; Temp 98; Pulse Ox 98% ; 4 04/15 01:00 Body Mass Index 25.80 (83.91 kg, 180.34 cm) fc MDM: 04/15 02:03 Patient medically screened. tw4 06:16 Differential diagnosis: acute psychotic break, depression. Data reviewed: vital signs, tw4 nurses notes. Counseling: I had a detailed discussion with the patient and/or guardian regarding: the historical points, exam findings, and any diagnostic results supporting the discharge/admit diagnosis. ED course: AWAITING MAT TEAM. 04/15 01:23 Order name: Acetaminophen; Complete Time: 07:34 04/15 01:23 Order name: Basic Metabolic Panel; Complete Time: 07:34 04/15 01:23 Order name: CBC with Diff; Complete Time: 07:34 04/15 01:23 Order name: ETOH Level; Complete Time: 07:34 04/15 01:23 Order name: Hepatic Function; Complete Time: 07:34 04/15 01:23 Order name: PT-INR; Complete Time: 07:34 04/15 01:23 Order name: Ptt, Activated; Complete Time: 07:34 04/15 01:23 Order name: Salicylate; Complete Time: 07:34 04/15 01:23 Order name: Urine Drug Screen; Complete Time: 07:34 04/15 01:59 Order name: Urine Dipstick--Ancillary (enter results); Complete Time: 07:34 2 04/16 12:29 Order name: Glucose, Ancillary Testing EDMS 04/16 12:29 Order name: Glucose, Ancillary Testing EDMS 04/16 12:29 Order name: Glucose, Ancillary Testing EDOR 04/16 17:38 Order name: Glucose, Ancillary Testing [facility] 04/15 01:23 Order name: EKG; Complete Time: 01:23 04/15 01:23 Order name: EKG - Nurse/Tech; Complete Time: 02:18 04/15 01:23 Order name: IV Saline Lock; Complete Time: 02:19 04/15 01:23 Order name: Labs collected and sent; Complete Time: 02:19 04/15 01:23 Order name: Urine Dipstick-Ancillary (obtain specimen); Complete Time: 02:36 04/15 07:08 Order name: Diet Ada 1800 Erwin; Complete Time: 07:10 [facility] 04/15 10:57 Order name: Diet Ada 1800 Erwin; Complete Time: 11:07 [facility] 04/15 16:56 Order name: Diet Ada 1800 Erwin; Complete Time: 16:57 [facility] 04/16 07:15 Order name: Diet Ada 1800 Erwin; Complete Time: 07:16 ph 04/16 17:18 Order name: Diet Ada 1800 Erwin; Complete Time: 17:19 ph Administered Medications: 06:40 Drug: metFORMIN 500 mg Route: PO; rr5 07:30 Follow up: Response: No adverse reaction rr5 04/16 08:40 Drug: metFORMIN 500 mg Route: PO; ph 18:06 Follow up: Response: No adverse reaction ph 19:02 Drug: metFORMIN 500 mg Route: PO; ph Point of Care Testing: Blood Glucose: 04/15 02:47 Blood Glucose: 250 mg/dL; ea 04/16 04:15 Blood Glucose: 324 mg/dL; rr5 18:12 Blood Glucose: 245 mg/dL; ph Ranges: Critical Glucose Levels:Adult <50 mg/dl or >400 mg/dl <40 mg/dl or >180 mg/dl Disposition: 04/17/18 01:31 Transfer ordered to Psych Facility. Diagnosis are Suicidal ideations, Major depressive disorder, recurrent. - Reason for transfer: Higher level of care. - Accepting physician is to [facility] via [facility]. - Condition is Stable. - Problem is new. - Symptoms have improved. Signatures: Dispatcher [employer] EDMS Shakila Khan RN RN aa1 Royce Smith MD MD cha Chretien, Felicia, RN RN Annalee Hood RN RN Huang Dietrich MD MD [facility] Shawn Aldrich MD MD tw4 Yannick Cortes RN RN rr5 Corrections: (The following items were deleted from the chart) 04/17 01:40 01:31 04/17/2018 01:31 Transfer ordered to Psych Facility. Diagnosis is Suicidal aa1 ideations; Major depressive disorder, recurrent. Reason for transfer: Higher level of care. Accepting physician is to [facility] via [facility]. Condition is Stable. Problem is new. Symptoms have improved. lashonda
== END 2018-04-17 01:40 ==
LOC: ER 00:59
DX: F33.9 Major depressive disorder, recurrent, unspecified (principal); R45.851 Suicidal ideations; E11.9 Type 2 diabetes mellitus without complications; Z79.84 Long term (current) use of oral hypoglycemic drugs; Z79.899 Other long term (current) drug therapy
CPT/HCPCS: 36415; 80048; 80076; 80307; 80320; 80329; 81003; 82962; 85025; 85610; 85730; 93005

== ENCOUNTER 2018-05-22 21:42 | Emergency (ER) | payer SELFPAY ==
--- OUTSIDE RECORDS SUMMARY | 2018-05-22 21:44 | XMS REPORT ---
:1980 Demographics Address [address] [place] [address] Email Address NONE Preferred Language Unknown Marital Status Unknown Baptism Affiliation Unknown Race Unknown Additional Race(s) Unavailable Ethnic Group Unknown Author [facility] Address [address] [place] [address] Dr. Crawford [address] [place] [id number] Care Team Providers Name Role Phone Unavailable Unavailable Unavailable Problems This patient has no known problems. Allergies, Adverse Reactions, Alerts This patient has no known allergies or adverse reactions. Medications This patient has no known medications.
[2018-05-22 22:47] LABS: Absolute Lymphocytes (CBC) 1.9 K/uL (0.7-4.9); Absolute Monocytes 0.7 K/uL (0.1-1.3); Absolute Neutrophil 5.2 K/uL (1.8-8.0); Basophils % 0.6 % (0-1.3); Eosinophils % 0.8 % (0-4.4); Hematocrit 46.1 % (39.6-49.0); MPV 9.5 fL (7.6-11.3); Monocytes % 8.5 % (3.3-12.3); RBC Red Blood Cell Count 5.26 M/uL (4.33-5.43)
[2018-05-22] MEDS ORDERED: KETOROLAC 30 MG/ML INJ ONE (23:02)
[2018-05-22] MEDS ORDERED: INSULIN -REGULAR HUMAN 50 UNIT/0.5 ML ML ONE (23:02)
[2018-05-22] MEDS ORDERED: NA CHLORIDE 0.9% 1,000 ML ONE (23:03)
[2018-05-22 23:40] LABS: Urine Blood NEGATIVE (NEG); Urine Glucose 2+ (NEG); Urine Protein NEGATIVE (NEG); Urine Specific Gravity <1.005 (1.005-1.030)
[2018-05-22 23:50] LABS: Urine Bacteria <20 /HPF (NONE SEEN); Urine Culture Reflex Order NOT NEEDED; Urine RBC NONE SEEN /HPF (NONE SEEN)
[2018-05-23 00:12] LABS: ALT/SGPT 39 U/L (12-78); AST/SGOT 22 U/L (15-37); Albumin 4.2 g/dL (3.4-5.0); Alkaline Phosphatase 91 U/L (45-117); BUN Blood Urea Nitrogen 7 mg/dL (7-18); Bicarbonate 26 mmol/L (21-32); Bilirubin Direct 0.1 mg/dL (0-0.2); Bilirubin Total 0.6 mg/dL (0.2-1.0); Glucose Level 366 mg/dL (74-106); Lipase 200 U/L (73-393); Potassium 3.8 mmol/L (3.5-5.1); Protein, Total 7.6 g/dL (6.4-8.2); Sodium Level 137 mmol/L (136-145)
[2018-05-23] MEDS ORDERED: NA CHLORIDE 0.9% 1,000 ML ONE (00:38)
[2018-05-23] MEDS ORDERED: INSULIN -REGULAR HUMAN 50 UNIT/0.5 ML ML ONE (00:38)
--- NOTE | 2018-05-23 01:18 | EDPHYS ---
Physician Documentation [facility] Name: Robby Augustin Jr Age: 37 yrs Sex: Male : 1980 Arrival Date: 05/22/2018 Time: 21:47 Bed 30 Private MD: ED Physician Jeremiah Dennis HPI: 05/22 22:25 This 37 yrs old Male presents to ER via [employer] with complaints of cp High Blood Sugar. 22:25 The patient or guardian reports hyperglycemia, that was potentially precipitated by ran cp out of metformin 2 weeks ago. Associated signs and symptoms: Pertinent negatives: vomiting, chest pain. Historical: - Home Meds: 22:37 gemfibrozil 600 mg Oral tab 1 tab 2 times per day [Active]; metformin 500 mg Oral tab 1 tl3 tab 2 times per day [Active]; - PMHx: 22:37 Depression; Diabetes - NIDDM; High Cholesterol; TB; tl3 - PSHx: 22:37 Appendectomy; tl3 - Immunization history:: Adult Immunizations unknown. - Social history:: Smoking status: unknown. - Ebola Screening: : No symptoms or risks identified at this time. ROS: 22:30 Constitutional: Negative for body aches, chills, fever, poor PO intake. cp 22:30 Eyes: Negative for injury, pain, redness, and discharge. cp 22:30 ENT: Negative for drainage from ear(s), ear pain, sore throat, difficulty swallowing, difficulty handling secretions. 22:30 Cardiovascular: Negative for chest pain, edema, palpitations. 22:30 Respiratory: Negative for cough, shortness of breath, wheezing. 22:30 Abdomen/GI: Negative for abdominal pain, nausea, vomiting, and diarrhea, black/tarry stool, rectal bleeding. 22:30 : Negative for urinary symptoms. 22:30 Skin: Negative for cellulitis, rash. 22:30 Neuro: Negative for altered mental status, headache, weakness. 22:30 Endocrine: Positive for elevated serum glucose. 22:30 All other systems are negative. Exam: 22:40 Constitutional: The patient appears in no acute distress, alert, awake, cp non-diaphoretic, non-toxic, well developed, well nourished. 22:40 Head/Face: Normocephalic, atraumatic. cp 22:40 Eyes: Periorbital structures: appear normal, Conjunctiva: normal, no exudate, no injection, Sclera: no appreciated abnormality, Lids and lashes: appear normal, bilaterally. 22:40 ENT: External ear(s): are unremarkable, Ear canal(s): are normal, clear, TM's: bulging, is not appreciated, bilaterally, erythema, is not appreciated, bilaterally, Nose: is normal, Mouth: Lips: moist, Oral mucosa: pink and intact, moist, Posterior pharynx: is normal, airway is patent, no erythema, no exudate, Voice: is normal. 22:40 Neck: ROM/movement: is normal, is supple, without pain, no range of motions limitations, no nuchal rigidity. 22:40 Chest/axilla: Inspection: normal, Palpation: is normal, no crepitus, no tenderness. 22:40 Cardiovascular: Rate: normal, Rhythm: regular, Edema: is not appreciated, JVD: is not appreciated. 22:40 Respiratory: the patient does not display signs of respiratory distress, Respirations: normal, no use of accessory muscles, no retractions, no splinting, no tachypnea, labored breathing, is not present, Breath sounds: are clear throughout, no decreased breath sounds, no stridor, no wheezing. 22:40 Abdomen/GI: Inspection: abdomen appears normal, Palpation: abdomen is soft and non-tender, in all quadrants. 22:40 Back: pain, is absent, ROM is normal. 22:40 Skin: cellulitis, is not appreciated, no rash present. 22:40 Neuro: Orientation: to person, place \T\ time. Mentation: is normal, Cerebellar function: is grossly normal, Motor: moves all fours, strength is normal, Sensation: is normal. Vital Signs: 22:37 BP 120 / 95; Pulse 90; Resp 18; Pulse Ox 98% ; tl3 05/23 00:22 BP 125 / 72; Pulse 92; Resp 18; Pulse Ox 100% on R/A; tl3 01:03 BP 127 / 82; Pulse 99; Resp 18; Pulse Ox 99% on R/A; tl3 MDM: 05/22 22:14 Patient medically screened. cp 05/23 00:00 Differential diagnosis: diabetes insipidus, DKA, hyperglycemia. cp 01:15 Data reviewed: vital signs, nurses notes, lab test result(s). cp 01:15 Counseling: I had a detailed discussion with the patient and/or guardian regarding: the cp historical points, exam findings, and any diagnostic results supporting the discharge/admit diagnosis, lab results, the need for outpatient follow up, a family practitioner, to return to the emergency department if symptoms worsen or persist or if there are any questions or concerns that arise at home. Response to treatment: the patient's symptoms have markedly improved after treatment, and as a result, I will discharge patient. 05/22 22:18 Order name: Basic Metabolic Panel 05/22 22:18 Order name: CBC with Diff 05/22 22:18 Order name: Creatinine for Radiology 05/22 22:18 Order name: Hepatic Function 05/22 22:18 Order name: Lipase 05/22 22:18 Order name: Urine Microscopic Only 05/22 22:56 Order name: Urine Dipstick--Ancillary (enter results) nm 05/22 23:20 Order name: CBC with Automated Diff; Complete Time: 23:35 EDMS 05/22 23:40 Order name: Urine Dipstick-Ancillary; Complete Time: 00:19 EDMS 05/22 23:48 Order name: Creatinine (Radiology Only); Complete Time: 00:19 EDMS 05/22 23:51 Order name: Urine Microscopic Only; Complete Time: 00:19 EDMS 05/23 00:12 Order name: Basic Metabolic Panel; Complete Time: 00:19 EDMS 05/23 00:19 Interpretation: Normal except: GLUC 366. 05/23 00:12 Order name: Liver (Hepatic) Function; Complete Time: 00:19 EDMS 05/23 00:12 Order name: Lipase; Complete Time: 00:19 EDMS 05/22 22:02 Order name: Accucheck Blood Glucose; Complete Time: 22:53 cp 05/22 22:18 Order name: IV Saline Lock; Complete Time: 22:53 cp 05/22 22:18 Order name: Labs collected and sent; Complete Time: 22:53 cp 05/22 22:18 Order name: XRAY Chest (1 view) cp 05/22 22:18 Order name: Urine Dipstick-Ancillary (obtain specimen); Complete Time: 22:53 cp Administered Medications: 05/22 23:05 Drug: NovoLIN R 10 units {Co-Signature: aa1 (Shakila Khan RN).} Route: Sub-Q; Site: tl3 abdomen; 05/23 00:23 Follow up: Response: Blood sugar is lowered tl3 05/22 23:06 Drug: TORadol 30 mg Route: IVP; Infused Over: 2 mins; Site: right antecubital; tl3 05/23 00:23 Follow up: Response: No adverse reaction tl3 05/22 23:07 Drug: NS 0.9% 1000 ml Route: IV; Rate: 1 bolus; Site: right antecubital; Delivery: tl3 Primary tubing; 05/23 00:23 Follow up: IV Status: Completed infusion; IV Intake: 1000ml tl3 00:21 Drug: NS 0.9% 1000 ml Route: IV; Rate: 1 bolus; Site: right antecubital; Delivery: tl3 Primary tubing; 01:40 Follow up: IV Status: Completed infusion; IV Intake: 1000ml tl3 00:31 Drug: Insulin Regular Human 5 units {Co-Signature: aa1 (Shakila Khan RN).} Route: IVP; tl3 Site: right antecubital; 01:06 Follow up: Response: Blood sugar is lowered tl3 Point of Care Testing: Blood Glucose: 05/22 22:47 Blood Glucose: 301 mg/dL; tl3 05/23 00:17 Blood Glucose: 270 mg/dL; jp3 00:22 Blood Glucose: 270 mg/dL; tl3 01:02 Blood Glucose: 168 mg/dL; tl3 Ranges: Critical Glucose Levels:Adult <50 mg/dl or >400 mg/dl <40 mg/dl or >180 mg/dl Disposition: 20:40 Co-signature as Attending Physician, Jeremiah Dennis MD. Disposition: 05/23/18 01:17 Discharged to Home. Impression: Diabetes mellitus due to underlying condition with hyperglycemia. - Condition is Stable. - Discharge Instructions: Blood Glucose Monitoring, Adult, Diabetes Mellitus and Food. - Prescriptions for Metformin 500 mg Oral Tablet - take 1 tablet by ORAL route 2 times per day Then take 1 tablet with morning meals AND evening meals; 60 tablet. - Medication Reconciliation Form, Thank You Letter, Antibiotic Education, Prescription Opioid Use form. - Follow up: Private Physician; When: 1 - 2 days; Reason: Recheck today's complaints. - Problem is new. - Symptoms have improved. Signatures: Dispatcher [employer] EDMS Royce Alcala PA PA cp Starr, Gregory, MD MD Katja Thornton RN RN tl3 Shakila Khan RN aa1 Corrections: (The following items were deleted from the chart) 01:42 01:17 05/23/2018 01:17 Discharged to Home. Impression: Diabetes mellitus due to tl3 underlying condition with hyperglycemia. Condition is Stable. Forms are Medication Reconciliation Form, Thank You Letter, Antibiotic Education, Prescription Opioid Use. Follow up: Private Physician; When: 1 - 2 days; Reason: Recheck today's complaints. Problem is new. Symptoms have improved. cp
--- NOTE | 2018-05-23 01:18 | ER ---
Nurse's Notes [facility] Name: Robby Augustin Jr Age: 37 yrs Sex: Male : 1980 Arrival Date: 05/22/2018 Time: 21:47 Bed 30 Private MD: Diagnosis: Diabetes mellitus due to underlying condition with hyperglycemia Presentation: 05/22 22:31 Presenting complaint: law enforcement. Transition of care: patient was not received tl3 from another setting of care. Onset of symptoms was May 22, 2018. Risk Assessment: Do you want to hurt yourself or someone else? Patient reports no desire to harm self or others. Initial Sepsis Screen: Does the patient meet any 2 criteria? No. Patient's initial sepsis screen is negative. Does the patient have a suspected source of infection? No. Patient's initial sepsis screen is negative. Care prior to arrival: None. 22:31 Method Of Arrival: Ambulatory tl3 22:31 Method Of Arrival: Law Enforcement: [place] [employer] tl3 22:31 Acuity: ROLY 3 tl3 Triage Assessment: 22:37 General: Appears in no apparent distress. comfortable, slender, well groomed, well tl3 developed, well nourished, Behavior is calm, cooperative, appropriate for age. Pain: Denies pain. EENT: No deficits noted. Neuro: Level of Consciousness is awake, alert, obeys commands, Oriented to person, place, time, situation, Appropriate for age. Cardiovascular: Patient's skin is warm and dry. Respiratory: Airway is patent Respiratory effort is even, unlabored, Respiratory pattern is regular, symmetrical. GI: No signs and/or symptoms were reported involving the gastrointestinal system. : Urine is clear. Derm: No signs and/or symptoms reported regarding the dermatologic system. Historical: - Home Meds: 22:37 gemfibrozil 600 mg Oral tab 1 tab 2 times per day [Active]; metformin 500 mg Oral tab 1 tl3 tab 2 times per day [Active]; - PMHx: 22:37 Depression; Diabetes - NIDDM; High Cholesterol; TB; tl3 - PSHx: 22:37 Appendectomy; tl3 - Immunization history:: Adult Immunizations unknown. - Social history:: Smoking status: unknown. - Ebola Screening: : No symptoms or risks identified at this time. Screenin:47 Abuse screen: Denies threats or abuse. Nutritional screening: No deficits noted. tl3 Tuberculosis screening: No symptoms or risk factors identified. Fall Risk None identified. Assessment: 22:47 Reassessment: No changes from previously documented assessment. tl3 05/23 00:22 Reassessment: Patient appears in no apparent distress at this time. No changes from tl3 previously documented assessment. Patient and/or family updated on plan of care and expected duration. Pain level reassessed. Patient is alert, oriented x 3, equal unlabored respirations, skin warm/dry/pink. accu check 270. 01:03 Reassessment: Patient appears in no apparent distress at this time. No changes from tl3 previously documented assessment. Patient and/or family updated on plan of care and expected duration. Pain level reassessed. Patient is alert, oriented x 3, equal unlabored respirations, skin warm/dry/pink. no other needs at this time. Vital Signs: 05/22 22:37 BP 120 / 95; Pulse 90; Resp 18; Pulse Ox 98% ; tl3 05/23 00:22 BP 125 / 72; Pulse 92; Resp 18; Pulse Ox 100% on R/A; tl3 01:03 BP 127 / 82; Pulse 99; Resp 18; Pulse Ox 99% on R/A; tl3 ED Course: 05/22 21:47 Patient arrived in ED. ds1 22:02 Royce Alcala PA is PHCP. cp 22:02 Jeremiah Dennis MD is Attending Physician. cp 22:31 Katja Thornton, SHAKEEL is Primary Nurse. tl3 22:36 Triage completed. tl3 22:37 Arm band placed on right wrist. tl3 22:47 Patient has correct armband on for positive identification. Bed in low position. Call tl3 light in reach. Side rails up X 1. Adult w/ patient. 22:47 No provider procedures requiring assistance completed. Initial lab(s) drawn, by sd, tl3 sent to lab. Urine collected: clean catch specimen, clear. Inserted saline lock: 20 gauge in left antecubital area, using aseptic technique. Blood collected. 22:53 Urine Microscopic Only Sent. tl3 23:03 Urine Dipstick--Ancillary (enter results) Sent. tl3 23:03 Basic Metabolic Panel Sent. tl3 23:03 CBC with Diff Sent. tl3 23:04 Creatinine for Radiology Sent. tl3 23:04 Hepatic Function Sent. tl3 23:04 Lipase Sent. tl3 05/23 01:40 IV discontinued, intact, bleeding controlled, No redness/swelling at site. Pressure tl3 dressing applied. Administered Medications: 05/22 23:05 Drug: NovoLIN R 10 units {Co-Signature: [email or web address] (Shakila Khan RN).} Route: Sub-Q; Site: tl3 abdomen; 05/23 00:23 Follow up: Response: Blood sugar is lowered tl3 05/22 23:06 Drug: TORadol 30 mg Route: IVP; Infused Over: 2 mins; Site: right antecubital; tl3 05/23 00:23 Follow up: Response: No adverse reaction tl3 05/22 23:07 Drug: NS 0.9% 1000 ml Route: IV; Rate: 1 bolus; Site: right antecubital; Delivery: tl3 Primary tubing; 05/23 00:23 Follow up: IV Status: Completed infusion; IV Intake: 1000ml tl3 00:21 Drug: NS 0.9% 1000 ml Route: IV; Rate: 1 bolus; Site: right antecubital; Delivery: tl3 Primary tubing; 01:40 Follow up: IV Status: Completed infusion; IV Intake: 1000ml tl3 00:31 Drug: Insulin Regular Human 5 units {Co-Signature: aa1 (Shakila Khan RN).} Route: IVP; tl3 Site: right antecubital; 01:06 Follow up: Response: Blood sugar is lowered tl3 Point of Care Testing: Blood Glucose: 05/22 22:47 Blood Glucose: 301 mg/dL; tl3 05/23 00:17 Blood Glucose: 270 mg/dL; jp3 00:22 Blood Glucose: 270 mg/dL; tl3 01:02 Blood Glucose: 168 mg/dL; tl3 Ranges: Intake: 00:23 IV: 1000ml; Total: 1000ml. tl3 01:40 IV: 1000ml; Total: 2000ml. tl3 Outcome: 01:17 Discharge ordered by . cp 01:40 Discharged to home ambulatory. tl3 01:40 Condition: good 01:40 Discharge instructions given to patient, police, Instructed on discharge instructions, follow up and referral plans. medication usage, Demonstrated understanding of instructions, follow-up care, medications, Prescriptions given X 1. 01:42 Patient left the ED. tl3 Signatures: Maty Wiggins ds1 Royce Alcala PA PA cp Lowrey, Tammy, RN RN tl3 Joao Arana jp3 Shakila Khan RN aa1
--- NOTE | 2018-05-23 07:47 | RAD REPORT ---
EXAM DESCRIPTION: RAD - Chest Single View - 05/22/2018 10:56 pm CLINICAL HISTORY: Left lower chest and rib pain, hyperglycemia, history of TB COMPARISON: None. TECHNIQUE: AP portable chest image was obtained 2251 hours . FINDINGS: Lungs are clear. Heart and vasculature are normal. No measurable pleural effusion and no p neumothorax. No acute bony abnormality seen. No acute aortic findings suspected. IMPRESSION: No acute cardiopulmonary process.
== END 2018-05-23 01:42 | disposition home or self-care (01) ==
LOC: ER 21:42
DX: E11.65 Type 2 diabetes mellitus with hyperglycemia (principal); E78.00 Pure hypercholesterolemia, unspecified; F32.9 Major depressive disorder, single episode, unspecified
CPT/HCPCS: 36415; 71045; 80048; 80076; 81003; 81015; 82962; 83690; 85025; 96361; 96372; 96374; 96375; 99284; J7030